=== PATIENT | male | born 1975 ===

== ENCOUNTER 2017-01-09 08:18 | Emergency (ER) | payer OTHER ==
[2017-01-09] MEDS ORDERED: Albuterol-Ipratrop 3 mg / 0.5 (3 ml) UD INH STA (08:49)
--- NOTE | 2017-01-09 09:20 | C.PDOC ---
History Of Present Illness 41 y/o male presents to the ED complaining of sob & wheezing. Patient has h/o asthma, states he usually uses his albuterol inhaler but he ran out 3-4 days ago. He denies cough, fever, chest pain, palpitations. Time Seen by Provider: 01/09/17 08:24 Chief Complaint (Nursing): Med Refill History Per: Patient History/Exam Limitations: no limitations Onset/Duration Of Symptoms: Days Current Symptoms Are (Timing): Still Present Severity: Mild Recent travel outside of the [place]: No Past Medical History Reviewed: Historical Data, Nursing Documentation, Vital Signs Vital Signs: Last Vital Signs Temp 98.2 F 01/09/17 09:50 Pulse 96 H 01/09/17 09:50 Resp 20 01/09/17 09:50 BP 124/79 01/09/17 09:50 Pulse Ox 97 01/09/17 09:50 - Medical History PMH: Asthma Surgical History: No Surg Hx Family History: States: No Known Family Hx - Social History Hx Tobacco Use: No Hx Alcohol Use: No Hx Substance Use: No - Immunization History Hx Tetanus Toxoid Vaccination: No Hx Influenza Vaccination: No Hx Pneumococcal Vaccination: No Review Of Systems Except As Marked, All Systems Reviewed And Found Negative. Constitutional: Negative for: Fever Cardiovascular: Negative for: Chest Pain, Palpitations Respiratory: Positive for: Shortness of Breath, Wheezing. Negative for: Cough Gastrointestinal: Negative for: Nausea, Vomiting, Abdominal Pain Physical Exam - Physical Exam Appears: Non-toxic, No Acute Distress, Other (comfortable; speaking in full sentences) Skin: Normal Color, Warm, Dry, No Rash Oral Mucosa: Moist Chest: Symmetrical Cardiovascular: Rhythm Regular Respiratory: No Accessory Muscle Use, No Rales, No Rhonchi, Wheezing (mild expiratory wheezing B/L) Gastrointestinal/Abdominal: Normal Exam, Bowel Sounds, Soft, No Tenderness Extremity: Normal ROM, No Pedal Edema, No Calf Tenderness, No Swelling Neurological/Psych: Oriented x3 ED Course And Treatment O2 Sat by Pulse Oximetry: 96 (ra) Pulse Ox Interpretation: Normal Progress Note: Patient given albuterol nebulizer treatment, and peak flow ordered and reviewed. Reevaluation Time: 09:40 Reassessment Condition: Improved (On reassessment, patient states he is feeling better. On exam, he has good air entry B/L without wheezing or accessory muscle use. POx is 97% on RA and peak flow is 550. Patient given Rx for albuterol inhaler. He was instructed to follow up with PMD/clinic in 1-2 days, and understands he should return to Ed if symptoms worsen.) Disposition Counseled Patient/Family Regarding: Diagnosis, Need For Followup, Rx Given - Disposition Referrals: [facility] [Outside] Disposition: HOME/ ROUTINE Disposition Time: 09:40 Condition: STABLE Additional Instructions: SEGUIMIENTO CON ROSE DOCTOR / CLNICA EN 1-2 ROCHE USE MEDICAMENTOS ZACK NECESITA DEVUELVA A LA JOVANY DE EMERGENCIA SI LOS SNTOMAS Prescriptions: Albuterol HFA [Ventolin HFA 90 mcg/actuation (8 g)] 0.09 mg IH Q4 PRN #1 puff PRN Reason: Wheezing Instructions: Asthma (ED) Print Language: TELUGU - POA Present On Arrival: None - Clinical Impression Clinical Impression: Asthma, Medication refill - Scribe Statement The provider has reviewed the documentation as recorded by the Scribe (Fina Kerr) Provider Attestation: All medical record entries made by the Scribe were at my direction and personally dictated by me. I have reviewed the chart and agree that the record accurately reflects my personal performance of the history, physical exam, medical decision making, and the department course for this patient. I have also personally directed, reviewed, and agree with the discharge instructions and disposition.
[2017-01-09 09:51] VITALS: BP 124/79; PULSE 96; RESP 20; TEMP 98.2
[2017-01-23 00:48] VITALS: O2SAT 96
== END 2017-01-09 09:50 | disposition home or self-care (01) ==
LOC: C.ER 08:18
DX: J45.909 Unspecified asthma, uncomplicated (principal); Z76.0 Encounter for issue of repeat prescription

== ENCOUNTER 2017-10-22 11:59 | Emergency (ER) | payer SELFPAY ==
[2017-10-22 13:18] VITALS: TEMP 98.6
[2017-10-22] MEDS ORDERED: Sodium Chloride 0.9% 1,000 ML IV ONE (15:11)
--- NOTE | 2017-10-22 15:14 | C.PDOC ---
History Of Present Illness Uziel Guardado is a 42 year old male, with a past medical history of sathma, who presents to the emergency department complaining of shortness of breath associated with a headache, and cough onset for x2 weeks. Patient was seen x2 weeks ago in the ER and given steroids. He denies any sore throat, or fever. No further medical complaints. PMD: None provided. Time Seen by Provider: 10/22/17 14:18 Chief Complaint (Nursing): Shortness Of Breath History Per: Patient History/Exam Limitations: no limitations Onset/Duration Of Symptoms: Days (x2 weeks) Current Symptoms Are (Timing): Still Present Associated Symptoms: Other (headache, cough). denies: Fever Reports Recently: Seen In ED Past Medical History Reviewed: Historical Data, Nursing Documentation, Vital Signs Vital Signs: Last Vital Signs Temp 98.6 F 10/22/17 13:16 Pulse 97 H 10/22/17 13:16 Resp 16 10/22/17 17:10 BP 121/84 10/22/17 13:16 Pulse Ox 95 10/22/17 15:19 - Medical History PMH: Asthma Surgical History: No Surg Hx Family History: States: Unknown Family Hx - Social History Hx Tobacco Use: No Hx Alcohol Use: No Hx Substance Use: No - Immunization History Hx Tetanus Toxoid Vaccination: No Hx Influenza Vaccination: No Hx Pneumococcal Vaccination: No Review Of Systems Constitutional: Negative for: Fever ENT: Negative for: Throat Pain Respiratory: Positive for: Cough, Shortness of Breath Neurological: Positive for: Headache Physical Exam - Physical Exam Skin: Normal Color, Warm, Dry Head: Atraumatic Eye(s): bilateral: Normal Inspection Neck: Normal, Normal ROM, Supple Cardiovascular: Rhythm Regular Respiratory: Wheezing Extremity: Normal ROM, No Deformity Neurological/Psych: Oriented x3 ED Course And Treatment - Laboratory Results Result Diagrams: 10/22/17 15:28 10/22/17 15:28 O2 Sat by Pulse Oximetry: 95 (RA) Pulse Ox Interpretation: Normal Medical Decision Making Medical Decision Making: Initial impression: shortness of breath Initial Plan: --EKG --Comp Metabolic Panel --CBC w/ differential --Chest two views (PA/LAT) [RAD] --SOLU-medrol 125 mg IVP --Sodium Chloride 1,000 ml IV 1,000 mls/hr --Nebulizer treatment --Peak flow pre/post Tx --Influenza A B --reevaluation Disposition Counseled Patient/Family Regarding: Studies Performed, Diagnosis, Need For Followup, Rx Given - Disposition Referrals: [facility] [Outside] Disposition: HOME/ ROUTINE Disposition Time: 17:42 Condition: STABLE Prescriptions: Albuterol HFA [Ventolin HFA 90 mcg/actuation (8 g)] 1 puff IH QID PRN #1 puff PRN Reason: Cough Instructions: Asthma (ED) Forms: Gen Discharge Inst Fijian, [facility] (Fijian), Work Excuse - POA Present On Arrival: None - Clinical Impression Clinical Impression: Asthma - Scribe Statement Sergio Li Provider Attestation: All medical record entries made by the Scribe were at my direction and personally dictated by me. I have reviewed the chart and agree that the record accurately reflects my personal performance of the history, physical exam, medical decision making, and the department course for this patient. I have also personally directed, reviewed, and agree with the discharge instructions and disposition.
[2017-10-22] MEDS ORDERED: Albuterol-Ipratrop 3 mg / 0.5 (3 ml) UD ONE (15:17)
[2017-10-22] MEDS ORDERED: Sodium Chloride 0.9% 1,000 ML ONE (15:17)
[2017-10-22] MEDS: Albuterol-Ipratrop 3 mg / 0.5 (3 ml) UD IH SCH ×3 (15:30→16:00)
[2017-10-22 15:33] LABS: BASO # 0.1 K/uL (0.0-0.2); EOS # 1.2 K/uL (0.0-0.7); EOS % 10.4 % (0.0-4.0); HEMOGLOBIN 15.2 g/dL (12.0-18.0); LYMPH # 2.7 K/uL (1.0-4.3); LYMPH % 23.4 % (20.0-40.0); MEAN CELL VOLUME 85.3 fL (80.0-94.0); MEAN CORPUSCULAR HEMOGLOBIN 29.7 pg (27.0-31.0); MEAN CORPUSCULAR HGB CONC 34.9 g/dL (33.0-37.0); MEAN PLATELET VOLUME 8.7 fL (7.2-11.7); MONO # 0.6 K/uL (0.0-0.8); MONO % 5.2 % (0.0-10.0); NEUT # 6.9 K/uL (1.8-7.0); RBC 5.12 Mil/uL (4.40-5.90); RED CELL DISTRIBUTION WIDTH 13.4 % (11.5-14.5); WHITE BLOOD COUNT 11.6 K/uL (4.8-10.8)
--- NOTE | 2017-10-22 15:53 | RAD ---
HISTORY: SOB COMPARISON: Chest x-ray performed 07/18/16 TECHNIQUE: Chest PA and lateral FINDINGS: LUNGS: No focal consolidation. Please note that chest x-ray has limited sensitivity for the detection of pulmonary masses. PLEURA: No significant pleural effusion identified. No definite pneumothorax . CARDIOVASCULAR: The cardiomediastinal silhouette appears within normal limits of size. OSSEOUS STRUCTURES: No acute osseous abnormality identified. VISUALIZED UPPER ABDOMEN: Unremarkable. OTHER FINDINGS: None. IMPRESSION: No focal consolidation, significant pleural effusion, or definite pneumothorax identified.
[2017-10-22 16:00] LABS: ALB/GLOB RATIO 1.2 (1.0-2.1); ALBUMIN 4.2 g/dL (3.5-5.0); ALT/SGPT 39 U/L (21-72); AST/SGOT 31 U/L (17-59); BLOOD UREA NITROGEN 15 mg/dL (9-20); CALCIUM 8.8 mg/dl (8.6-10.4); GFR AFRICAN-AMERICAN > 60; GFR NON-AFRICAN AMERICAN > 60
[2017-10-22 17:11] VITALS: RESP 16
[2017-10-22 17:56] VITALS: BP 131/82; PULSE 86; O2SAT 96
== END 2017-10-22 17:55 | disposition home or self-care (01) ==
LOC: C.ER 11:59
DX: J45.909 Unspecified asthma, uncomplicated (principal)
CPT/HCPCS: 71046; 80053; 85025; 87804; 94640; 96361; 96374; 99284; J2930; J7040

== ENCOUNTER 2017-11-20 06:31 | Emergency (ER) | payer OTHER ==
[2017-11-20 06:31] VITALS: BMI 27.1
[2017-11-20 06:39] VITALS: BP 119/84; RESP 20; O2SAT 100
[2017-11-20] MEDS ORDERED: Albuterol-Ipratrop 3 mg / 0.5 (3 ml) UD INH STA (07:32)
--- NOTE | 2017-11-20 07:46 | C.PDOC ---
History Of Present Illness 42 y/o M c PMHx asthma p/w fever, cough, congestion, sore throat, body aches x 3 days. Child at home with similar symptoms. Denies recent travel, dyspnea, abdominal pain, vomiting, diarrhea, chest pain. Time Seen by Provider: 11/20/17 07:08 Chief Complaint (Nursing): Cough, Cold, Congestion Past Medical History Vital Signs: Last Vital Signs Temp 102 F H 11/20/17 06:37 Pulse 104 H 11/20/17 06:37 Resp 20 11/20/17 06:37 BP 119/84 11/20/17 06:37 Pulse Ox 100 11/20/17 06:37 - Medical History PMH: Asthma - [facility] Procedures INJECT/INFUSE NEC (03/31/13) Family History: States: Unknown Family Hx - Social History Hx Tobacco Use: No Hx Alcohol Use: No Hx Substance Use: No - Immunization History Hx Tetanus Toxoid Vaccination: No Hx Influenza Vaccination: No Hx Pneumococcal Vaccination: No Review Of Systems Except As Marked, All Systems Reviewed And Found Negative. Cardiovascular: Negative for: Chest Pain Gastrointestinal: Negative for: Abdominal Pain Physical Exam - Physical Exam Additional Physical Exam Comments: Gen: NAD Head: NC/AT Eyes: PERRL ENT: No pharygeal erythema or exudates. Neck: Supple Chest: No tenderness CV: Borderline tachycardic Resp: Diffuse expiratory wheezing, no focal rhonchi. Abd: Soft, NT Ext: No swelling Neuro: Alert, no focal deficit ED Course And Treatment O2 Sat by Pulse Oximetry: 100 Medical Decision Making Medical Decision Makin42 y/o M c PMHx asthma p/w influenza like symptoms and mild wheezing. Plan: Asthma treatment, start tamiflu, supportive care, f/u primary care, instructed to return to ED for worsening dyspnea, pain, vomiting, or any other problem. Disposition - Disposition Disposition: HOME/ ROUTINE Disposition Time: 07:46 Condition: STABLE Prescriptions: Dexamethasone [Decadron] 5 tab PO ONCE #5 tab Oseltamivir Phosphate [Tamiflu] 75 mg PO BID #9 capsule Instructions: Viral Syndrome (ED) - Clinical Impression Clinical Impression: Influenza-like illness
[2017-11-20] MEDS ORDERED: Albuterol-Ipratrop 3 mg / 0.5 (3 ml) UD ONE (07:55)
[2017-11-20 08:32] VITALS: PULSE 99; TEMP 99
== END 2017-11-20 08:31 | disposition home or self-care (01) ==
LOC: C.ER 06:31
DX: J11.1 Influenza due to unidentified influenza virus with other respiratory manifestations (principal); J45.909 Unspecified asthma, uncomplicated
CPT/HCPCS: 94640; 99283; J8540

== ENCOUNTER 2018-01-02 01:39 | Emergency (ER) | payer SELFPAY ==
[2018-01-02 01:39] VITALS: BMI 27.1
[2018-01-02] MEDS ORDERED: DiphenhydrAMINE 12.5 mg/5 ml LIQ UD (5 ml) PO STA (02:01)
--- NOTE | 2018-01-02 02:05 | C.PDOC ---
History Of Present Illness 42 year old male presents to the ED c/o intermittent SOB, wheezing, for the past month. Patient is also c/o nasal congestion, patient reports using his ventolin inhaler at home with no relief. Patient denies fever, chill, cough, CP , recent travel, sick contacts. Time Seen by Provider: 01/02/18 01:57 Chief Complaint (Nursing): Shortness Of Breath History Per: Patient History/Exam Limitations: no limitations Onset/Duration Of Symptoms: Intermittent Episodes (month) Current Symptoms Are (Timing): Still Present Initiating Event: Upper Respiratory Illness Quality: Tightness Current Respiratory Medications: See Home Med List Associated Symptoms: denies: Fever, Chest Pain, Productive Cough Recent travel outside of the [place]: No Additional History Per: Patient Past Medical History Reviewed: Historical Data, Nursing Documentation, Vital Signs Vital Signs: Last Vital Signs Temp 98.1 F 01/02/18 03:06 Pulse 90 01/02/18 03:06 Resp 22 01/02/18 03:06 BP 127/81 01/02/18 03:06 Pulse Ox 97 01/02/18 03:06 - Medical History PMH: Asthma Surgical History: No Surg Hx - [facility] Procedures INJECT/INFUSE NEC (03/31/13) Family History: States: Unknown Family Hx - Social History Hx Tobacco Use: No Hx Alcohol Use: No Hx Substance Use: No - Immunization History Hx Tetanus Toxoid Vaccination: No Hx Influenza Vaccination: No Hx Pneumococcal Vaccination: No Review Of Systems Constitutional: Negative for: Fever, Chills ENT: Positive for: Nose Congestion Respiratory: Positive for: Shortness of Breath, Wheezing. Negative for: Cough Gastrointestinal: Negative for: Vomiting, Abdominal Pain Skin: Negative for: Rash Neurological: Negative for: Weakness, Numbness Physical Exam - Physical Exam Appears: Non-toxic, No Acute Distress Skin: Normal Color, Warm, Dry Head: Atraumatic, Normacephalic Eye(s): bilateral: Normal Inspection Nose: No Discharge Oral Mucosa: Moist Neck: Normal ROM, Supple Chest: Symmetrical Respiratory: Decreased Breath Sounds, Wheezing (B/L expiratory ) Extremity: Normal ROM, No Tenderness, No Pedal Edema, No Swelling Neurological/Psych: Oriented x3, Normal Speech Gait: Steady ED Course And Treatment O2 Sat by Pulse Oximetry: 95 (On RA) Pulse Ox Interpretation: Normal Progress Note: Plan: - Albuterol 2.5 mg neb x 2. - Benadryl 25 mg PO. - Prednisone 60 mg PO. Pt resting comfortably in no resp distress, VSS. Pt reports improvement of his sx and is stable for d/c. Pt advised follow up and return precautions discussed. pt agrees [facility] plan Reevaluation Time: 02:56 Reassessment Condition: Improved Disposition Counseled Patient/Family Regarding: Diagnosis, Need For Followup, Rx Given - Disposition Referrals: [facility] [Outside] Disposition: HOME/ ROUTINE Disposition Time: 02:38 Condition: STABLE Additional Instructions: Increase PO fluids' Take meds as prescribed Follow up in clinic Return to ER if worse Prescriptions: Albuterol HFA [Ventolin HFA 90 mcg/actuation (8 g)] 2 puff IH O6PEXEF #1 inhaler Mometasone Furoate [Nasonex] 2 spray NS DAILY #1 bottle predniSONE [Prednisone] 40 mg PO DAILY #8 tab Instructions: Asthma, Adult (DC) Forms: [employer] (Guamanian) Print Language: FRENCH - Clinical Impression Clinical Impression: Asthma, Allergic rhinitis - PA / [employer] / Resident Statement MD/DO has reviewed & agrees with the documentation as recorded. - Scribe Statement The provider has reviewed the documentation as recorded by the Scribe Taras Elliott All medical record entries made by the Azaleaibnancy were at my direction and personally dictated by me. I have reviewed the chart and agree that the record accurately reflects my personal performance of the history, physical exam, medical decision making, and the department course for this patient. I have also personally directed, reviewed, and agree with the discharge instructions and disposition.
[2018-01-02] MEDS: Albuterol 0.083% Inhal Sol (2.5 mg/3 mL) UD INH SCH ×2 (02:25→02:40)
[2018-01-02] MEDS ORDERED: Albuterol-Ipratrop 3 mg / 0.5 (3 ml) UD ONE ×2 (02:32→02:53)
[2018-01-02 03:07] VITALS: BP 127/81; PULSE 90; RESP 22; TEMP 98.1
[2018-01-02 04:02] VITALS: O2SAT 95
== END 2018-01-02 03:07 | disposition home or self-care (01) ==
LOC: C.ER 01:39
DX: J45.909 Unspecified asthma, uncomplicated (principal)

== ENCOUNTER 2018-02-04 07:20 | Emergency (ER) | payer OTHER ==
[2018-02-04 07:20] VITALS: BMI 27.1
[2018-02-04] MEDS ORDERED: Albuterol-Ipratrop 3 mg / 0.5 (3 ml) UD ONE (07:40)
[2018-02-04] MEDS ORDERED: Albuterol 0.083% Inhal Sol (2.5 mg/3 mL) UD IH STA (07:46)
[2018-02-04] MEDS ORDERED: Albuterol-Ipratrop 3 mg / 0.5 (3 ml) UD IH STA (07:46)
--- NOTE | 2018-02-04 07:50 | C.PDOC ---
History Of Present Illness 42 y/o male, w/PMhx of asthma, presents to the ER complaining of SOB and dry cough which has been present for the past few days. Patient states that he has been admitted in the hospital for asthma but has never been intubated. Patient reports that he ran out his ventolin inhaler. He notes that he has chest tightness. Otherwise, he denies having fever, chills, URI symptoms, and dizziness. Time Seen by Provider: 02/04/18 07:31 Chief Complaint (Nursing): Shortness Of Breath History Per: Patient History/Exam Limitations: no limitations Onset/Duration Of Symptoms: Days Current Symptoms Are (Timing): Still Present Associated Symptoms: denies: Fever, Chills, Dizziness Past Medical History Reviewed: Historical Data, Nursing Documentation, Vital Signs Vital Signs: Last Vital Signs Temp Pulse 98 H 02/04/18 08:50 Resp 22 02/04/18 08:50 BP 124/77 02/04/18 08:50 Pulse Ox 96 02/04/18 08:50 - Medical History PMH: Asthma Surgical History: No Surg Hx - [facility] Procedures INJECT/INFUSE NEC (03/31/13) Family History: States: No Known Family Hx - Social History Hx Tobacco Use: No Hx Alcohol Use: No Hx Substance Use: No - Immunization History Hx Tetanus Toxoid Vaccination: No Hx Influenza Vaccination: No Hx Pneumococcal Vaccination: No Review Of Systems Except As Marked, All Systems Reviewed And Found Negative. Constitutional: Negative for: Fever, Chills Cardiovascular: Positive for: Other (chest tightness) Respiratory: Positive for: Cough, Shortness of Breath Neurological: Negative for: Dizziness Physical Exam - Physical Exam Appears: Non-toxic, Other (comfortable, speaking in full sentences, NARD) Skin: Normal Color, Warm, Dry, No Diaphoretic Head: Atraumatic, Normacephalic Eye(s): bilateral: Normal Inspection Ear(s): Bilateral: Normal Nose: Normal Oral Mucosa: Moist Throat: Normal, No Erythema, No Exudate Neck: Supple Chest: Symmetrical Cardiovascular: Rhythm Regular Respiratory: Decreased Breath Sounds, No Rales, No Rhonchi, Wheezing ( expiratory and inspiratory wheezing) Gastrointestinal/Abdominal: Normal Exam, Soft, No Tenderness Neurological/Psych: Oriented x3, Normal Speech ED Course And Treatment - Laboratory Results Result Diagrams: 02/04/18 07:49 02/04/18 07:49 Lab Interpretation: Normal O2 Sat by Pulse Oximetry: 100 (RA) Pulse Ox Interpretation: Normal - Radiology CXR: Interpreted by Me CXR Interpretation: Yes: No Acute Disease - Other Rad CXR X-Ray: Viewed By Me, Read By Radiologist Interpretation: HISTORY: SOB. COMPARISON: Chest x-rays 10/22/2017 and 2015. TECHNIQUE: Chest one view . FINDINGS: LUNGS: No focal consolidation is seen. Stable left upper lobe calcified granuloma. PLEURA: There is no right pleural effusion. Left costophrenic angle is excluded from the image and a small left pleural effusion cannot be excluded. CARDIOVASCULAR: Heart size is within normal limits. OSSEOUS STRUCTURES: Visualized osseous structures are unremarkable. VISUALIZED UPPER ABDOMEN: Unremarkable. OTHER FINDINGS: None. IMPRESSION: No acute cardiopulmonary process seen. Progress Note: Patient treated with Duoneb, Albuterol and solumedrol. Lungs now clear with good inspiration. Reevaluation Time: 10:09 Reassessment Condition: Improved Medical Decision Making Medical Decision Making: Plan: --Labs --ECG --CXR --Albuterol Disposition Counseled Patient/Family Regarding: Studies Performed, Diagnosis, Need For Followup, Rx Given - Disposition Referrals: [facility] [Outside] Disposition: HOME/ ROUTINE Disposition Time: 10:10 Condition: IMPROVED Prescriptions: Albuterol Sulfate [Proair Hfa] 1 - 2 puff IH Q6 PRN #1 inh PRN Reason: Wheezing Prednisone 50 mg PO DAILY #4 Instructions: Asthma in Adults Forms: [facility] (Arabic) - Clinical Impression Clinical Impression: Asthma exacerbation - Scribe Statement The provider has reviewed the documentation as recorded by the Leonel Jackson Provider Attestation: All medical record entries made by the Azaleaibe were at my direction and personally dictated by me. I have reviewed the chart and agree that the record accurately reflects my personal performance of the history, physical exam, medical decision making, and the department course for this patient. I have also personally directed, reviewed, and agree with the discharge instructions and disposition.
[2018-02-04 07:53] LABS: BASO # 0.1 K/uL (0.0-0.2); BASO % 1.3 % (0.0-2.0); EOS # 1.6 K/uL (0.0-0.7); EOS % 18.1 % (0.0-4.0); HEMOGLOBIN 15.2 g/dL (12.0-18.0); LYMPH % 23.3 % (20.0-40.0); MEAN CORPUSCULAR HEMOGLOBIN 29.7 pg (27.0-31.0); MEAN CORPUSCULAR HGB CONC 34.9 g/dL (33.0-37.0); MEAN PLATELET VOLUME 8.6 fL (7.2-11.7); MONO # 0.6 K/uL (0.0-0.8); MONO % 6.5 % (0.0-10.0); NEUT # 4.4 K/uL (1.8-7.0); NEUT % 50.8 % (50.0-75.0); RBC 5.12 Mil/uL (4.40-5.90); RED CELL DISTRIBUTION WIDTH 13.3 % (11.5-14.5); WHITE BLOOD COUNT 8.6 K/uL (4.8-10.8)
[2018-02-04] MEDS ORDERED: MethylPREDNISolone 40 mg Vial IVP STA (07:55)
[2018-02-04] MEDS ORDERED: Albuterol 0.083% Inhal Sol (2.5 mg/3 mL) UD ONE ×2 (07:58→08:11)
--- NOTE | 2018-02-04 08:09 | RAD ---
HISTORY: SOB COMPARISON: Chest x-rays 10/22/2017 and 07/18/2016 TECHNIQUE: Chest one view . FINDINGS: LUNGS: No focal consolidation is seen. Stable left upper lobe calcified granuloma. PLEURA: There is no right pleural effusion. Left costophrenic angle is excluded from the image and a small left pleural effusion cannot be excluded. CARDIOVASCULAR: Heart size is within normal limits. OSSEOUS STRUCTURES: Visualized osseous structures are unremarkable. VISUALIZED UPPER ABDOMEN: Unremarkable. OTHER FINDINGS: None. IMPRESSION: No acute cardiopulmonary process seen.
[2018-02-04 08:13] LABS: ALB/GLOB RATIO 1.2 (1.0-2.1); ALBUMIN 4.5 g/dL (3.5-5.0); ALT/SGPT 24 U/L (21-72); AST/SGOT 24 U/L (17-59); BLOOD UREA NITROGEN 14 mg/dL (9-20); CALCIUM 9.1 mg/dl (8.6-10.4); GFR AFRICAN-AMERICAN > 60; GFR NON-AFRICAN AMERICAN > 60
[2018-02-04 10:12] VITALS: BP 119/77; PULSE 109; RESP 18
[2018-02-04 10:15] VITALS: O2SAT 100
--- NOTE | 2018-02-06 | CARD ---
APPROVED REPORT EKG Measurement Heart [id number] <Conclusion> Normal sinus rhythm Left anterior fascicular block Abnormal ECG
== END 2018-02-04 10:22 | disposition home or self-care (01) ==
LOC: C.ER 07:20
DX: J45.901 Unspecified asthma with (acute) exacerbation (principal)
CPT/HCPCS: 71045; 80053; 85025; 96374; 99284; J2920

== ENCOUNTER 2018-06-18 07:44 | Emergency (ER) | payer OTHER ==
[2018-06-18 07:51] VITALS: BMI 27.4
[2018-06-18] MEDS ORDERED: DiphenhydrAMINE 50 mg/ml Inj IM STA (09:05)
[2018-06-18] MEDS ORDERED: DiphenhydrAMINE 50 mg/ml Inj ONE (09:36)
[2018-06-18 10:13] VITALS: RESP 17; TEMP 97.9
[2018-06-18 11:55] VITALS: BP 120/82; PULSE 66; O2SAT 99
--- NOTE | 2018-06-18 12:09 | C.PDOC ---
History Of Present Illness 43 year old male presents to the ED for evaluation of an itchy rash to his body which began 3 days ago. Patient states he was mowing his lawn, which contained grass which reached the height of his knees, shortly after which his symptoms began. Patient had a similar rash in the past, also after mowing the grass. Patient denies shortness of breath, cough, throat/mouth swelling. Time Seen by Provider: 06/18/18 08:24 Chief Complaint (Nursing): Abnormal Skin Integrity History Per: Patient History/Exam Limitations: no limitations Onset/Duration Of Symptoms: Days Current Symptoms Are (Timing): Still Present Quality Of Symptoms: Itching Additional History Per: Patient Past Medical History Reviewed: Historical Data, Nursing Documentation, Vital Signs Vital Signs: Last Vital Signs Temp 97.9 F 06/18/18 10:12 Pulse 66 06/18/18 11:54 Resp 17 06/18/18 11:54 BP 120/82 06/18/18 11:54 Pulse Ox 99 06/18/18 16:15 - Medical History PMH: Asthma Surgical History: No Surg Hx - [facility] Procedures INJECT/INFUSE NEC (03/31/13) Family History: States: Unknown Family Hx - Social History Hx Tobacco Use: No Hx Alcohol Use: No Hx Substance Use: No - Immunization History Hx Tetanus Toxoid Vaccination: No Hx Influenza Vaccination: No Hx Pneumococcal Vaccination: No Review Of Systems ENT: Negative for: Mouth Swelling, Throat Swelling Respiratory: Negative for: Cough, Shortness of Breath Skin: Positive for: Rash Physical Exam - Physical Exam Appears: Non-toxic, No Acute Distress Skin: Warm, Dry, Rash (erythematous, urticarial-appearing rash to bilateral upper and lower extremities. erythematous and raised, 3-4cm linear areas to bilateral lower extremities. patch with bumpy coalesced vesicles to dorsal aspect of right hand ) Head: Atraumatic, Normacephalic Eye(s): bilateral: Normal Inspection Oral Mucosa: Moist Tongue: Normal Appearing, No Swelling Lips: Normal Appearing, No Swelling Throat: Normal, No Erythema, No Exudate, No Drooling Neck: Supple Chest: Symmetrical, No Deformity, No Tenderness Cardiovascular: Rhythm Regular, No Murmur Respiratory: Normal Breath Sounds, No Rales, No Rhonchi, No Wheezing Extremity: Normal ROM, Capillary Refill (less than 2 seconds ) Neurological/Psych: Oriented x3, Normal Speech, Normal Cognition ED Course And Treatment O2 Sat by Pulse Oximetry: 99 (on RA) Pulse Ox Interpretation: Normal Medical Decision Making Medical Decision Making: Progress: Benadryl IM, Pepcid PO, and Prednisone PO given. pt with rash on body. mostly on legs after mowing lawn, allergic reaction vs poison tenisha- feeling better after benadryl and prensodne. d/c home withmeds. Disposition Counseled Patient/Family Regarding: Diagnosis, Need For Followup, Rx Given - Disposition Referrals: [facility] [Outside] [facility] [Outside] Disposition: HOME/ ROUTINE Disposition Time: 12:08 Condition: IMPROVED Additional Instructions: Please take medications as prescribed. Do not drive when taking bendryl, Avoid mowing law or exposure to plants. Follow up with your doctor or in medical clinic/. Prescriptions: DiphenhydrAMINE [Benadryl] 25 mg PO Q6 #40 cap predniSONE [predniSONE Tab] 40 mg PO DAILY #10 tab Instructions: Hives, Poison Tenisha, Poison [place], Poison [place] (DC) Forms: Gen Discharge Inst Vietnamese, [employer] (Vietnamese) Print Language: SWEDISH - Clinical Impression Clinical Impression: Allergic contact dermatitis - PA / RETREAD BUILDER / Resident Statement MD/DO has reviewed & agrees with the documentation as recorded. - Scribe Statement The provider has reviewed the documentation as recorded by the Scribe (Kaylee Aceves) All medical record entries made by the Scribe were at my direction and personally dictated by me. I have reviewed the chart and agree that the record accurately reflects my personal performance of the history, physical exam, medical decision making, and the department course for this patient. I have also personally directed, reviewed, and agree with the discharge instructions and disposition.
== END 2018-06-18 12:27 | disposition home or self-care (01) ==
LOC: C.ER 07:44
DX: L23.9 Allergic contact dermatitis, unspecified cause (principal)
CPT/HCPCS: 96372; 99283; J1200

== ENCOUNTER 2018-11-23 09:18 | Emergency (ER) | payer OTHER ==
[2018-11-23 09:19] VITALS: BMI 27.4
[2018-11-23] MEDS: Albuterol-Ipratrop 3 mg / 0.5 (3 ml) UD IH SCH ×2 (09:44→09:55)
[2018-11-23] MEDS ORDERED: Albuterol-Ipratrop 3 mg / 0.5 (3 ml) UD ONE (09:45)
[2018-11-23 09:58] LABS: BASO # 0.1 K/uL (0.0-0.2); BASO % 1.1 % (0.0-2.0); EOS # 2.3 K/uL (0.0-0.7); EOS % 21.5 % (0.0-4.0); HEMOGLOBIN 15.6 g/dL (12.0-18.0); LYMPH # 2.9 K/uL (1.0-4.3); LYMPH % 26.4 % (20.0-40.0); MEAN CELL VOLUME 85.9 fL (80.0-94.0); MEAN PLATELET VOLUME 8.5 fL (7.2-11.7); MONO # 0.6 K/uL (0.0-0.8); MONO % 5.5 % (0.0-10.0); NEUT # 4.9 K/uL (1.8-7.0); NEUT % 45.5 % (50.0-75.0); NRBC % 0.1 % (0.0-2.0); PLATELET COUNT 334 K/uL (130-400); RBC 5.19 Mil/uL (4.40-5.90); WHITE BLOOD COUNT 10.8 K/uL (4.8-10.8)
[2018-11-23 10:01] LABS: ALB/GLOB RATIO 1.5 (1.0-2.1); ALBUMIN 4.6 g/dL (3.5-5.0); ALT/SGPT 25 U/L (21-72); AST/SGOT 23 U/L (17-59); BLOOD UREA NITROGEN 14 mg/dL (9-20); CALCIUM 9.4 mg/dl (8.6-10.4); GFR NON-AFRICAN AMERICAN > 60
[2018-11-23 10:12] LABS: B-TYPE NATRIURETIC PEPTIDE 28.7 pg/mL (0-450)
--- NOTE | 2018-11-23 10:38 | C.PDOC ---
History Of Present Illness 43 y/o male, with history of asthma, comes in to ED complaining of chest pain, chest tightness, SOB, and cough for the past 2 weeks. Patient denies any fever, chills, nausea, vomiting, or other symptoms. Patient has no history of any coronary artery disease. Time Seen by Provider: 11/23/18 09:35 Chief Complaint (Nursing): Cough, Cold, Congestion History Per: Patient History/Exam Limitations: no limitations Onset/Duration Of Symptoms: Days Current Symptoms Are (Timing): Still Present Past Medical History Reviewed: Historical Data, Nursing Documentation, Vital Signs Vital Signs: Last Vital Signs Temp 97.5 F L 11/23/18 09:27 Pulse 70 11/23/18 09:27 Resp 18 11/23/18 09:27 BP 131/83 11/23/18 09:27 Pulse Ox 97 11/23/18 09:27 - Medical History PMH: Asthma - [facility] Procedures INJECT/INFUSE NEC (03/31/13) Family History: States: No Known Family Hx - Social History Hx Tobacco Use: No Hx Alcohol Use: No Hx Substance Use: No - Immunization History Hx Tetanus Toxoid Vaccination: No Hx Influenza Vaccination: No Hx Pneumococcal Vaccination: No Review Of Systems Except As Marked, All Systems Reviewed And Found Negative. Constitutional: Negative for: Fever, Chills ENT: Negative for: Nose Congestion, Throat Pain Cardiovascular: Positive for: Chest Pain Respiratory: Positive for: Cough, Shortness of Breath Gastrointestinal: Negative for: Nausea, Vomiting Physical Exam - Physical Exam Appears: Non-toxic, No Acute Distress, Other (Cooperative) Skin: Warm, Dry Head: Atraumatic, Normacephalic Eye(s): bilateral: Normal Inspection Oral Mucosa: Moist Neck: Supple Cardiovascular: Rhythm Regular, No Murmur Respiratory: No Rales, No Rhonchi, Wheezing (tight wheezing bilaterally) Gastrointestinal/Abdominal: Soft, No Tenderness Neurological/Psych: Oriented x3, Normal Speech ED Course And Treatment - Laboratory Results Result Diagrams: 11/23/18 09:46 11/23/18 09:46 Lab Results: Troponin I < 0.0120 ng/mL (0.00-0.120) 11/23/18 09:46 NT-Pro-B Natriuret Pep 28.7 pg/mL (0-450) 11/23/18 09:46 Total Bilirubin 0.7 mg/dL (0.2-1.3) 11/23/18 09:46 AST 23 U/L (17-59) 11/23/18 09:46 ALT 25 U/L (21-72) 11/23/18 09:46 Alkaline Phosphatase 109 U/L (38-126) 11/23/18 09:46 Total Protein 7.7 g/dL (6.3-8.3) 11/23/18 09:46 Albumin 4.6 g/dL (3.5-5.0) 11/23/18 09:46 Globulin 3.1 gm/dL (2.2-3.9) 11/23/18 09:46 Albumin/Globulin Ratio 1.5 (1.0-2.1) 11/23/18 09:46 O2 Sat by Pulse Oximetry: 97 (RA) Pulse Ox Interpretation: Normal - Other Rad CXR X-Ray: Read By Radiologist Interpretation: FINDINGS: LUNGS: No active pulmonary disease. Calcified granuloma again seen left upper lobe laterally. PLEURA: No significant pleural effusion identified. No pneumothorax apparent. CARDIOVASCULAR: No aortic atherosclerotic calcification present. Normal cardiac size. No pulmonary vascular congestion. OSSEOUS STRUCTURES: No significant abnormalities. VISUALIZED UPPER ABDOMEN: Normal. OTHER FINDINGS: None. IMPRESSION: No interval acute cardiopulmonary disease appreciated. Medical Decision Making Medical Decision Making: Plan: --Labs --Chest XR --Solumedrol 125 mg IV --Duoneb --Flu swab EKG done, showed fascicular block, which is consistent with prior EKG that was done last year. Disposition Counseled Patient/Family Regarding: Studies Performed, Diagnosis, Need For Followup, Rx Given - Disposition Referrals: [facility] [Outside] Disposition: HOME/ ROUTINE Disposition Time: 10:54 Condition: STABLE Prescriptions: Albuterol HFA [Ventolin HFA 90 mcg/actuation (8 g)] 1 puff IH QID PRN #1 puff PRN Reason: Cough Prednisone [Deltasone] 60 mg PO DAILY #12 tablet Instructions: Asthma, Adult (DC) Forms: Gen Discharge Inst Montenegrin, [employer] [facility] (Montenegrin), Work Excuse - POA Present On Arrival: None - Clinical Impression Clinical Impression: Influenza-like illness, Asthma - Scribe Statement The provider has reviewed the documentation as recorded by the Leonel Bishop Provider Attestation: All medical record entries made by the Leonel were at my direction and personally dictated by me. I have reviewed the chart and agree that the record accurately reflects my personal performance of the history, physical exam, medical decision making, and the department course for this patient. I have also personally directed, reviewed, and agree with the discharge instructions and disposition.
--- NOTE | 2018-11-23 10:49 | RAD ---
Date of service: 11/23/2018 HISTORY: SOB COMPARISON: Chest radiographs 02/04/2018. TECHNIQUE: Chest PA and lateral FINDINGS: LUNGS: No active pulmonary disease. Calcified granuloma again seen left upper lobe laterally. PLEURA: No significant pleural effusion identified. No pneumothorax apparent. CARDIOVASCULAR: No aortic atherosclerotic calcification present. Normal cardiac size. No pulmonary vascular congestion. OSSEOUS STRUCTURES: No significant abnormalities. VISUALIZED UPPER ABDOMEN: Normal. OTHER FINDINGS: None. IMPRESSION: No interval acute cardiopulmonary disease appreciated.
[2018-11-23 10:59] VITALS: BP 128/75; PULSE 83; RESP 20; TEMP 97.7
[2018-11-23 11:04] VITALS: O2SAT 97
[2018-11-23 11:52] LABS: EOSINOPHIL 23 % (0-4); LYMPHOCYTE 34 % (20-40); MONOCYTE 3 % (0-10); NEUTROPHIL 37 % (50-75); PLATELET ESTIMATE NORMAL (NORMAL); REACTIVE LYMPHOCYTES 3 % (0-0); TOTAL CELLS COUNTED 100
--- NOTE | 2018-11-24 14:36 | CARD ---
APPROVED REPORT Date of service: 11/23/2018 EKG Measurement Heart [id number] <Conclusion> Normal sinus rhythm Left anterior fascicular block Nonspecific ST abnormality Abnormal ECG
== END 2018-11-23 11:02 | disposition home or self-care (01) ==
LOC: C.ER 09:18
DX: J11.1 Influenza due to unidentified influenza virus with other respiratory manifestations (principal); J45.909 Unspecified asthma, uncomplicated
CPT/HCPCS: 71046; 80053; 83880; 84484; 85025; 87804; 93005; 96374; 99283; J2930

== ENCOUNTER 2019-02-08 12:37 | Emergency (ER) | payer OTHER ==
[2019-02-08 12:37] VITALS: BMI 27.4
[2019-02-08 12:47] VITALS: TEMP 97.8
[2019-02-08] MEDS ORDERED: DiphenhydrAMINE 50 mg/ml Inj IM STA (13:39)
[2019-02-08] MEDS ORDERED: DiphenhydrAMINE 50 mg/ml Inj ONE (13:49)
--- NOTE | 2019-02-08 13:55 | C.PDOC ---
History Of Present Illness 44 year old male presents to the emergency department with complaints of rash to the face, torso, hands and wrist after he was painting and sanding things yesterday. Patient reports trying two doses of Benadryl 25mg each without improvement. Patient denies trouble breathing or swallowing. Time Seen by Provider: 02/08/19 13:01 Chief Complaint (Nursing): Allergic Reaction History Per: Patient History/Exam Limitations: no limitations Onset/Duration Of Symptoms: Days (1) Current Symptoms Are (Timing): Still Present Location Of Injury: Right: Face, Wrist, Anterior: Chest Quality Of Symptoms: Other (rash) Past Medical History Reviewed: Historical Data, Nursing Documentation, Vital Signs Vital Signs: Last Vital Signs Temp 97.8 F 02/08/19 12:44 Pulse 86 02/08/19 12:44 Resp 20 02/08/19 12:44 BP 142/88 02/08/19 12:44 Pulse Ox 96 02/08/19 12:44 - Medical History PMH: Asthma Surgical History: No Surg Hx - [facility] Procedures INJECT/INFUSE NEC (03/31/13) Family History: States: No Known Family Hx - Social History Hx Tobacco Use: No Hx Alcohol Use: No Hx Substance Use: No - Immunization History Hx Tetanus Toxoid Vaccination: No Hx Influenza Vaccination: No Hx Pneumococcal Vaccination: No Review Of Systems Constitutional: Negative for: Fever, Chills ENT: Negative for: Throat Swelling Cardiovascular: Negative for: Chest Pain Respiratory: Negative for: Shortness of Breath Skin: Positive for: Rash Physical Exam - Physical Exam Appears: Non-toxic, No Acute Distress Skin: Warm, Dry, Rash (urticarial rash to the right forehead, right lateral face, lower abdomen, and right and left distal forearm/thumb area), Other (erythema to right and left distal forearm/thumb area) Head: Atraumatic, Normacephalic Eye(s): bilateral: Normal Inspection Nose: Normal Oral Mucosa: Moist Tongue: Normal Appearing, No Swelling Lips: Normal Appearing, No Swelling Throat: Normal, No Erythema Neck: Normal, Supple Chest: Symmetrical, No Tenderness Cardiovascular: Rhythm Regular, No Murmur Respiratory: Normal Breath Sounds, No Rales, No Rhonchi, No Wheezing Gastrointestinal/Abdominal: Soft, No Tenderness, No Guarding, No Rebound Extremity: Normal ROM Neurological/Psych: Oriented x3, Normal Speech, Normal Cognition ED Course And Treatment O2 Sat by Pulse Oximetry: 96 (RA) Pulse Ox Interpretation: Normal Medical Decision Making Medical Decision Making: Plan: Benadryl 50mg IM Pepcid 20mg PO Prednisone 60mg PO 1502 pt wit marked decreased in redness and itchiness at bilateral wrists- advised to check type of gloves he is wearing. may be causative factor. decreased redness and itching to face and abdomen. will d/c home with pred nisone. benadryl and pepcid. pt requests refill of albuterol mdi, has no wheezing on exam. Disposition Counseled Patient/Family Regarding: Diagnosis, Need For Followup, Rx Given - Disposition Referrals: [facility] [Outside] [facility] [Outside] Disposition: HOME/ ROUTINE Disposition Time: 15:06 Condition: IMPROVED Additional Instructions: Take prednisone and pepcid as prescribed. For the next 2 days, while at home, take benadryl 25 mg by mouth every 6 hours, no driving or working. DO not work when taking benadryl. When you go back to work, take loratidine 10 mg in daytime and benadryl at bedtime- if needed for itch . Avoid using same type of gloves at work- this may have caused rash on hands. Return immediately to ER for any trouble breathing or swallowing, swelling to lips, tongue or mouth. Follow up in clinic. Prescriptions: Albuterol HFA [Ventolin HFA 90 mcg/actuation (8 g)] 2 puff IH Q6 #1 inhaler Famotidine [Pepcid] 20 mg PO DAILY #7 tab predniSONE [predniSONE Tab] 2 tab PO DAILY #8 tab Instructions: Hives (DC) Forms: General Discharge Instructions, Work/School/Gym Excuse, [facility] (Kiswahili) - Clinical Impression Clinical Impression: Allergic urticaria - PA / EDUCATIONAL AUDIOLOGIST / Resident Statement MD/DO has reviewed & agrees with the documentation as recorded. - Scribe Statement The provider has reviewed the documentation as recorded by the Scribe (Corby Sosa) All medical record entries made by the Scribe were at my direction and personally dictated by me. I have reviewed the chart and agree that the record accurately reflects my personal performance of the history, physical exam, medical decision making, and the department course for this patient. I have also personally directed, reviewed, and agree with the discharge instructions and disposition.
[2019-02-08 15:25] VITALS: BP 132/69; PULSE 78; RESP 16
[2019-02-12 09:19] VITALS: O2SAT 96
== END 2019-02-08 15:24 | disposition home or self-care (01) ==
LOC: C.ER 12:37
DX: L50.0 Allergic urticaria (principal)
CPT/HCPCS: 96372; 99283; J1200

== ENCOUNTER 2019-02-12 20:41 | Emergency (ER) | payer SELFPAY, OTHER | END 2019-02-12 22:33 | disposition home or self-care (01) | LOC: C.ER 20:41 ==

== ENCOUNTER 2019-02-17 09:39 | Emergency (ER) | payer OTHER ==
[2019-02-17 09:39] VITALS: BMI 27.4
[2019-02-17] MEDS ORDERED: Albuterol-Ipratrop 3 mg / 0.5 (3 ml) UD INH STA (10:08)
[2019-02-17] MEDS ORDERED: Albuterol-Ipratrop 3 mg / 0.5 (3 ml) UD ONE ×2 (10:09→11:34)
--- NOTE | 2019-02-17 11:05 | C.PDOC ---
History Of Present Illness CO ASTHMA EXAC X 1 WEEK. PS NO LONGER HAS ASTHMA MEDICATIONS BUT HAS NEB MACHINE. PS NORMALLY USES ALBUTEROL "ONCE IN A WHILE NEEDED". +WHEEZE AND TIGHTNESS, DRY COUGH. NO FEVER. NO SMOKE EXAM MILD DIST NONTOXIC LUNGS SPEAKING FULL SENTENCES NO RETRACT +B/L EXP WHEEZE DIFFUSE NO RALES/RHONCHI REMAINDER NEG MDM ASTHMA EXAC, NO MEDS. NEB, STEROID, CXR Time Seen by Provider: 02/17/19 10:51 Chief Complaint (Nursing): Respiratory Distress History Per: Patient History/Exam Limitations: no limitations Onset/Duration Of Symptoms: Other (one week ) Current Symptoms Are (Timing): Still Present Past Medical History Reviewed: Historical Data, Nursing Documentation, Vital Signs Vital Signs: Last Vital Signs Temp 97.4 F L 02/17/19 10:02 Pulse 70 02/17/19 10:02 Resp 18 02/17/19 10:02 BP 133/91 H 02/17/19 10:02 Pulse Ox 96 02/17/19 10:02 Primary Care Provider: Carlos Payne Surg - Medical History PMH: Asthma Surgical History: No Surg Hx - [facility] Procedures INJECT/INFUSE NEC (03/31/13) Family History: States: Unknown Family Hx - Social History Hx Tobacco Use: No Hx Alcohol Use: No Hx Substance Use: No - Immunization History Hx Tetanus Toxoid Vaccination: No Hx Influenza Vaccination: No Hx Pneumococcal Vaccination: No Review Of Systems Respiratory: Positive for: Cough, Wheezing, Other (asthma exacerbation ). Negative for: Sputum Physical Exam - Physical Exam Appears: Non-toxic, Other (in mild distress) Skin: Normal Color, Warm, Dry Head: Atraumatic, Normacephalic Eye(s): bilateral: Normal Inspection Oral Mucosa: Moist Neck: Supple Chest: Symmetrical, No Deformity, No Tenderness Cardiovascular: Rhythm Regular, No Murmur Respiratory: Other (LUNGS SPEAKING FULL SENTENCES NO RETRACT +B/L EXP WHEEZE DIFFUSE NO RALES/RHONCHI) Extremity: Normal ROM Neurological/Psych: Oriented x3, Normal Speech, Normal Cognition ED Course And Treatment ECG: Interpreted By Me ECG Rhythm: Sinus Rhythm ECG Interpretation: Normal Interpretation Of ECG: TWI III Rate From EC O2 Sat by Pulse Oximetry: 96 Pulse Ox Interpretation: Normal - Radiology CXR: Interpreted by Me CXR Interpretation: Yes: No Acute Disease Reevaluation Time: 12:16 Reassessment Condition: Improved Medical Decision Making Medical Decision Making: ASTHMA EXAC, NO MEDS. NEB, STEROID, CXR Disposition Counseled Patient/Family Regarding: Studies Performed, Diagnosis, Need For Followup, Rx Given - Disposition Referrals: [facility] [Outside] [facility] [Outside] [facility] [Other] Disposition: HOME/ ROUTINE Disposition Time: 12:16 Condition: IMPROVED Prescriptions: Albuterol 0.083% [Albuterol Sulfate 3 Ml] 3 ml IH Q4 #30 neb Albuterol HFA [Ventolin HFA 90 mcg/actuation (8 g)] 1 puff IH Q4 #1 inhaler Benzonatate [Tessalon Perles] 200 mg PO TID PRN #15 sgl PRN Reason: Cough predniSONE [Prednisone] 60 mg PO DAILY #12 tab Instructions: Asthma, Adult (DC) Forms: [facility] (Brazilian), Work Excuse - Clinical Impression Clinical Impression: Exacerbation of asthma - Scribe Statement The provider has reviewed the documentation as recorded by the Scribe (Kaylee Aceves) Provider Attestation: All medical record entries made by the Scribe were at my direction and personally dictated by me. I have reviewed the chart and agree that the record accurately reflects my personal performance of the history, physical exam, medical decision making, and the department course for this patient. I have also personally directed, reviewed, and agree with the discharge instructions and disposition.
[2019-02-17] MEDS: Albuterol-Ipratrop 3 mg / 0.5 (3 ml) UD IH SCH ×2 (11:15→11:50)
--- NOTE | 2019-02-17 11:39 | RAD ---
HISTORY: ASTHMA COMPARISON: Chest x-ray performed 11/23/18 TECHNIQUE: Chest PA and lateral, 2 views FINDINGS: LUNGS: Mild bibasilar atelectasis/infiltrates. Scattered probable calcified granulomas measuring up to 4 mm in the left upper lobe Please note that chest x-ray has limited sensitivity for the detection of pulmonary masses. PLEURA: No significant pleural effusion identified. No definite pneumothorax . CARDIOVASCULAR: Heart size appears within normal limits. Atherosclerotic calcifications present. OSSEOUS STRUCTURES: No acute osseous abnormality identified. VISUALIZED UPPER ABDOMEN: Unremarkable. OTHER FINDINGS: None. IMPRESSION: Mild bibasilar atelectasis/infiltrates. Scattered probable calcified granulomas measuring up to 4 mm in the left upper lobe
[2019-02-17 12:53] VITALS: BP 128/81; PULSE 86; RESP 18; TEMP 97.7
[2019-02-17 22:12] VITALS: O2SAT 96
--- NOTE | 2019-02-19 01:11 | CARD ---
APPROVED REPORT Date of service: 02/17/2019 EKG Measurement Heart [id number] <Conclusion> Normal sinus rhythm Left axis deviation Nonspecific ST abnormality Abnormal ECG
== END 2019-02-17 13:02 | disposition home or self-care (01) ==
LOC: C.ER 09:39
DX: J45.901 Unspecified asthma with (acute) exacerbation (principal)